=== PATIENT | male | born 1945 | race Caucasian/White ===

== ENCOUNTER → 2017-10-19 | Outpatient (CLI) | payer MEDICARE, OTHER ==
[~2017-10-19] MED LIST: ASCO-182 PO; ASCO-342 PO; ASPI-715 PO; ASPI-816 PO; ATOR10TA65 PO; ESOM40CA42 PO; ESOM40SU2 PO; FLU45SYR25 IM ONLY; HTN MED; IBUP-1687 PO; IBUP200C71 PO; KEPPRA; LEVE500T73 PO; LEVE500T88 PO; LISI-362 PO; MULT-56 PO; MULT1CAP59 PO; MULT1TAB64 PO; OMEG-96 PO; OMEG1CAP98 PO; OMEG500C5 PO; PANT40TA65 PO; PNEU0.5D3 IM; TAMS0.4C25 PO
== END ==
LOC: LAB 08:05
PROVIDERS: ATTEND Urology
DX: C61 Malignant neoplasm of prostate (principal)
CPT/HCPCS: 36415; 84153

== ENCOUNTER → 2017-10-21 | Outpatient (REF) | payer MEDICARE, OTHER | LOC: ZZSENDIN 18:42 | PROVIDERS: ATTEND Urology | DX: N39.0 Urinary tract infection, site not specified (principal); R33.8 Other retention of urine | CPT/HCPCS: 81001; 87088 ==

== ENCOUNTER → 2018-01-22 | Outpatient (CLI) | payer MEDICARE, OTHER ==
[~2018-01-22] MED LIST changes: -ASPI-816 PO; +ASPI-870 PO
== END ==
LOC: LAB 13:08
PROVIDERS: ATTEND Urology
DX: C61 Malignant neoplasm of prostate (principal)
CPT/HCPCS: 36415; 84153

== ENCOUNTER → 2018-04-05 | Outpatient (CLI) | payer MEDICARE, OTHER ==
[~2018-04-05] MED LIST changes: +IBUP-136 PO; -IBUP200C71 PO; +MIRT7.5T2 PO; +PANT20TA27 PO
== END ==
LOC: LAB 13:30
PROVIDERS: ATTEND Surgery
DX: Z02.9 Encounter for administrative examinations, unspecified (principal)
CPT/HCPCS: 88305

== ENCOUNTER → 2018-05-14 | Outpatient (CLI) | payer MEDICARE, OTHER | LOC: LAB 14:09 | PROVIDERS: ATTEND Urology | DX: C61 Malignant neoplasm of prostate (principal) | CPT/HCPCS: 36415; 84153 ==

== ENCOUNTER → 2018-07-12 | Outpatient (CLI) | payer MEDICARE, OTHER ==
[~2018-07-12] MED LIST changes: +LISI5TAB25 PO
[2018-07-12 17:39] LABS: PLATELET COUNT, AUTOMATED 336 K/uL (150-450)
== END ==
LOC: LAB 17:21
PROVIDERS: ATTEND Family Medicine
DX: R53.83 Other fatigue (principal); I10 Essential (primary) hypertension
CPT/HCPCS: 36415; 82040; 82247; 82310; 82374; 82435; 82565; 82947; 84075; 84132; 84155; 84295; 84443; 84450; 84460; 84520; 85025

== ENCOUNTER → 2018-07-26 | Outpatient (CLI) | payer MEDICARE, OTHER | LOC: LAB 12:04 | PROVIDERS: ATTEND Family Medicine | DX: I10 Essential (primary) hypertension (principal) | CPT/HCPCS: 36415; 82310; 82374; 82435; 82565; 82947; 84132; 84295; 84520 ==

== ENCOUNTER → 2018-09-17 | Outpatient (CLI) | payer MEDICARE, OTHER | LOC: LAB 11:59 | PROVIDERS: ATTEND Urology | DX: C61 Malignant neoplasm of prostate (principal) | CPT/HCPCS: 36415; 84153 ==

== ENCOUNTER 2018-11-22 13:00 | Outpatient (RCR) | payer MEDICARE, OTHER ==
--- NOTE | 2018-08-27 14:31 | PT INITIAL EVALUATION ---
MEDICAL DIAGNOSIS: R26.89 Imbalance, M79.605 L LE pain TREATMENT DIAGNOSIS: Same DATE OF ONSET: 02/13/10 SUBJECTIVE: Ean Galindo (Charley) presents to PT for recurrent falls since he had a parietal region meningioma excised 02/13/[address] Block, subsequent radiation after that. His , Sundeep, relates he's missing chairs and the edge of the bed and falling because he isn't turning fully before sitting. Kaleigh reports intermittent L LE electric shock at his toes, none today. REHAB PROBLEM LIST: Increased Pain Decreased ROM Decreased Strength Impaired Transfers Decreased Endurance Decreased Balance Decreased Function Decreased Mobility Decreased Gait PREVIOUS MEDICAL HISTORY: Meningioma excision 2009, HTN, hypercholesteremia, partial prostatectomy, smokes a cigar/day, TURP. 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 Kaleigh relates it's difficult to get around town due to his balance and weakness. OBJECTIVE: Posture: Long L LE, ~1", with subsequent L lumbar scoliosis, heels 6" apart. L foot appears to have PTTD. ROM: LE PROM WNL, knees with crepitus, tight lateral hips, calves.. Shoulders AROM WNL. Strength: Hip flexors R 3+/5, L 4-/5, quads, hamstrings 4-/5 B, Tib. ant. 4+/5 R, 4/5 L, calves 2/5. Special Tests: Negative SLR with ankle DF B for paresthesia, R 60 deg., L 70 degrees. Negative Tinel tap at the tarsal tunnel. Mobility: Sit/stand with UE use, 3 attempts. Transfers chair/chair with difficulty due to imbalance, lack of WS, unsteady trunk. Gait: 4WW with discordant cadance, feet don't clear the floor or pass each other, mild weaving. Tinetti Gait and Balance 8, a high fall risk. Kaleigh is unable to turn 180 deg. independently due to weakness and imbalance. Balance: Double limb support only. Kaleigh sits down with push to chest. Standing narrow CHRISTINA with eyes open is unsteady. Other Objective Findings: O2 91%, HR 102 with standing one minute. ASSESSMENT: Kaleigh Galindo presents with high fall risk, weakness, imbalance, possible L sciatic pain. We'll work imbalance first. He did well with strengthening today. Short Term Goals One month: Kaleigh ambulates 50 feet without stopping, steady with immediate standing balance. Two months: Kaleigh turns fully before sitting with balance control, transfers without UE use with quad control. Three months: Low fall risk (Tinetti), short distance community ambulator with 4WW. Patient's Goals Reduce the number of falls and walk better. PLAN: Patient to be seen for Therapeutic exercise, Balance and Gait Training, Neuro RE-education for 2x/week for 3 months. Thank you for this referral. If you have any questions, comments, or concerns about this report or plan, please contact me at . [facility]
--- NOTE | 2018-10-04 14:19 | PT PLAN OF CARE ---
Physician: Dr. Shannan Mccann Patient is being seen: 2x/week Therapist: Julieth Gregg, PT Medical Diagnosis: R26.89 Imbalance, M79.605 L LE pain Treatment Diagnosis: Same Date of Onset: 02/13/10 Date of Initial Evaluation: 08/27/18 Date patient was last seen: 09/30/18 Number of treatments: 10 Number of cancellations/No shows: 0 INTERVENTIONS: Therapeutic Exercise, Gait and Balance Training GOALS: One month: Kaleigh ambulates 50 feet without stopping, steady with immediate standing balance. (both progressing) Two months: Kaleigh turns fully before sitting with balance control (progressing), transfers without UE use with quad control (not met). Three months: Low fall risk (Tinetti), short distance community ambulator with 4WW. (both not met) PATIENT'S GOAL: Reduce the number of falls and walk better. (both progressing) Patient Compliance: Excellent Prognosis: Excellent Reasons for continuing therapy: S: Kaleigh relates he isn't falling as much but still does fall at home. O: Strength: Sit/stand with eccentric quad control, L foot drop still present. Gait: Kaleigh now ambulates with 4WW with 6 to 8 consecutive steps, then stops due to weak L hip flexor. Mobility: Sit/stand with UE use, 1-3 attempts. Transfers turning 90 to 180 degrees, still lunges at times for a chair. Balance: Double limb support still. Tinetti Gait and Balance improved from to 07/14, a 61% impairment. A/P: Kaleigh Galindo is improving gait quality, still a high fall risk. If you agree, we'll continue 2x/week, working more balance training another 2 months. Thank you. BULL
--- NOTE | 2018-11-08 18:17 | PT PLAN OF CARE ---
Physician: Dr. Shannan Mccann Patient is being seen: 2x/week Therapist: Julieth Gregg, PT Medical Diagnosis: R26.89 Imbalance, M79.605 L LE pain Treatment Diagnosis: Same Date of Onset: 02/13/10 Date of Initial Evaluation: 08/27/18 Date patient was last seen: 11/08/18 Number of treatments: 20 Number of cancellations/No shows: 0 INTERVENTIONS: Balance and Gait Training, Neuro Re-education, Therapeutic Exercise GOALS: One month: Kaleigh ambulates 50 feet without stopping, steady with immediate standing balance. (both met) Two months: Kaleigh turns fully before sitting with balance control (progressing), transfers without UE use with quad control (met). Three months: Low fall risk (Tinetti) (progressing), short distance community ambulator with 4WW. (met) PATIENT'S GOAL: Reduce the number of falls and walk better. (both progressing) Patient Compliance: Excellent Prognosis: Excellent Reasons for continuing therapy: S: Kaleigh relates he's walked all across the hospital with his 4WW to get from the cafeteria to PT. Gait and Balance: Gait with 4WW slowly for 50 feet, reduced L hip flexion and foot doesn't clear the floor, R foot passes L and clears the floor. Tinetti Gait and Balance test improved to 17, a high fall risk. Kaleigh still performs balance exercise with flexed and L side bent trunk, reduced R WS. Strength: Sit/stand from 21" height in one attempt, improved eccentric quad strength. A/P: Kaleigh Galindo is improving gait and balance, strength. he can benefit from continued PT to reduce fall risk and improve gait quality, posture. If you agree, we'll continue 2x/week 4 more weeks then assess if he needs further PT or DC. Thank you. BULL
== END 2018-11-25 ==
LOC: PT 13:00
PROVIDERS: ATTEND Family Medicine
DX: M79.604 Pain in right leg (principal); R26.89 Other abnormalities of gait and mobility
CPT/HCPCS: 97162

== ENCOUNTER 2019-01-11 13:52 | Emergency (ER) | payer MEDICARE, OTHER ==
--- NOTE | 2019-01-11 14:05 | ER Report ---
History and Physical Time Seen By MD: 14:05 Hx. of Stated Complaint: ELEVATED BP AT PHYSICAL THERAPY. ASYMPOTAMATIC - "I DIDN'T THINK I NEEDED TO COME BUT THEY TOLD ME TO". HPI/ROS CHIEF COMPLAINT: High blood pressure HISTORY OF PRESENT ILLNESS: This is a 73-year-old male who presents to the emergency department from physical therapy for hypertension. Patient has a long- standing history of hypertension. Was at the end of his physical therapy treatment today, which he has been in for about 5 years. Patient had no symptoms, no headaches, no chest pain or shortness breath, no visual changes, no fevers or chills. No nausea or vomiting. He states that they were concerned about the elevated blood pressure wanted him evaluated. REVIEW OF SYSTEMS: Respiratory: No cough, no dyspnea. Cardiovascular: As above. Gastrointestinal: No vomiting, no abdominal pain. Musculoskeletal: No back pain. Allergies: Coded Allergies: No Known Allergies (Verified Allergy, Mild, 01/11/19) Home Meds Active Scripts Lisinopril (LISINOPRIL) 10 Mg Tablet, 10 MG PO QDAY for 90 Days, #90 TAB 4 Refills Prov:BARRY MARSH MD 09/06/18 Pantoprazole Sodium (PANTOPRAZOLE SODIUM) 20 Mg Tablet.dr, 20 MG PO QDAY for 90 Days, #90 TAB.SR 4 Refills Prov:BARRY MARSH MD 08/23/18 Mirtazapine (MIRTAZAPINE) 7.5 Mg Tablet, 7.5 MG PO QHS for 90 Days, #90 TAB 4 Refills Prov:BARRY MARSH MD 07/12/18 Atorvastatin Calcium (ATORVASTATIN CALCIUM) 10 Mg Tablet, 1 TAB PO DAILY, #90 TAB 4 Refills TAKE ONE TABLET BY MOUTH ONCE A DAY AT BED TIME Prov:BARRY MARSH MD 07/17/17 Aspirin (Children's Aspirin) 81 Mg Tab.chew, 1 TAB PO QDAY, #100 TAB 4 Refills Prov:PREM ANDRADE MD 09/03/15 Reported Medications Ascorbic Acid (C-1000) 1,000 Mg Tablet, 1 TAB PO DAILY 07/08/17 [place]-3 Fatty Acids/Fish Oil (OMEGA 3 1,000 MG SOFTGEL) 1 Each Capsule, 1 CAP PO QDAY, CAPSULE 07/08/17 Multivit-Min/FA/Lycopen/Lutein (Men 50 Plus Multivitamin Tab) 300 Mcg-600 Mcg- 300 Mcg Tablet, 1 TAB PO DAILY 07/08/17 Past Medical/Surgical History Patient has a past medical and surgical history of brain tumor, removed in 2009, received radiation, 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 Reviewed Nurses Notes: Yes Hx Smoking: No (cigar every morning, smoked for "a long time") Smoking Status: Former Smoker Hx Substance Use Disorder: No Hx Alcohol Use: No Constitutional Vital Sign - Last 24 Hours 01/11/19 01/11/19 13:58 14:15 Temp 98.3 Pulse 68 71 Resp 20 20 B/P (MAP) 156/91 153/96 (115) Pulse Ox 94 95 O2 Delivery Room Air Room Air Physical Exam General Appearance: The patient is alert, has no immediate need for airway protection and no signs of toxicity. Eyes: Pupils equal and round no pallor or injection. ENT, Mouth: Mucous membranes are moist. Respiratory: There are no retractions, lungs are clear to auscultation. Cardiovascular: Regular rate and rhythm. No murmurs, clicks or rubs. Gastrointestinal: Abdomen is soft and non tender, no masses, bowel sounds normal. Neurological: Alert and oriented as 4. Moving all extremities, at baseline. Fol lowing all commands. No focal neuro deficits. Skin: Warm and dry, no rashes. Musculoskeletal: Neck is supple non tender. Extremities are nontender, nonswollen and have full range of motion. DIFFERENTIAL DIAGNOSIS: After history and physical exam differential diagnosis was considered for hypertension. Medical Decision Making ED Course/Re-evaluation ED Course The patient was admitted to room. A history and physical were obtained. Differential diagnoses were considered. After discussion with patient, and reviewing the patient's for cervical blood pressures, the blood pressure today i s within his normal range, as he is asymptomatic, we decided that there was no further evaluation needed at this time, the patient was agreeable with this would prefer to go home, I was agreeable, patient was encouraged to follow-up with his primary care provider for reevaluation or return to the ER for any other concerns. He is rest and understanding discharged home. Decision to Disposition Date: January 11, 2019 Decision to Disposition Time: 14:12 Depart Departure Latest Vital Signs Vital Signs Date Time Temp Pulse Resp B/P (MAP) Pulse Ox O2 Delivery O2 Flow Rate FiO2 01/11/19 14:15 71 20 153/96 (115) 95 Room Air 01/11/19 13:58 98.3 Impression: Primary Impression: Hypertension Condition: Improved Disposition: HOME OR SELF-CARE Referrals: BARRY MARSH MD (PCP) 2 Weeks Patient Instructions: Hypertension (ED) Additional Instructions: When compared to your previous blood pressures, the one today is very similar. You have no complaints, no headaches, changes in vision, chest pain, shortness of breath or any other concerns today, therefore we can send you home and follow up with Dr. Marsh as scheduled. Continue with therapy as scheduled. Continue taking your regular medications. If you have any concerns, please return to the ED immediately for reevaluation. Drink plenty of water. Get plenty of rest. 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
[2019-01-11 14:15] VITALS: BP 153/96
== END 2019-01-11 14:19 | disposition home or self-care (01) ==
LOC: ER 14:19
DX: I10 Essential (primary) hypertension (principal)
CPT/HCPCS: 99281

== ENCOUNTER 2019-02-10 12:54 | Outpatient (RCR) | payer MEDICARE, OTHER ==
--- NOTE | 2018-11-29 18:00 | PT PLAN OF CARE ---
Physician: Dr. Shannan Mccann Patient is being seen: 2x/week Therapist: Julieth Gregg, PT Medical Diagnosis: R26.89 Imbalance, M79.605 L LE pain Treatment Diagnosis: Same Date of Onset: 02/13/10 Date of Initial Evaluation: 08/27/18 Date patient was last seen: 11/29/18 Number of treatments: 25 Number of cancellations/No shows: 0 INTERVENTIONS: Therapeutic Exercise, Gait/Balance Training, Neuro Re-education GOALS: One month: Kaleigh ambulates 50 feet without stopping, steady with immediate standing balance. (both met) Two months: Kaleigh turns fully before sitting with balance control (progressing), transfers without UE use with quad control (met). Three months: Low fall risk (Tinetti) (progressing), short distance community ambulator with 4WW. (met) PATIENT'S GOAL: Reduce the number of falls and walk better. 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 He reports his L LE stiffens wtih cold weather, making gait difficult. O: Strength: Hip flexors R 4/5, L 4-/5, quads, hamstrings 4/5 B, Tib. ant. 4+/5 R, 4/5 L, calves 2/5. Gait/Balance: 4WW with forearm supports with feet almost passing each other, sometimes the L foot clears the floor, few stops. Tinetti Gait and Balance improved one point to 18, a high fall risk still. Kaleigh can now turn independently, slowly, discordant steps and slight LOB with self-recovery Special Tests: Tight L ITB, psoas, quads, hamstrings, adductors. Mobility: Sit/stand without UE use, 1 attempt. Turns and stops for balance in 180 deg. turns to chair. A/P: Johan Galindo is improving gait, balance, strength but is still a high fall risk. If you agree, I'd like Johan to continue 2x/week through December, adding manual L LE stretching and higher level balance training in treatment. Thank you. BULL
--- NOTE | 2019-01-11 17:45 | PT PLAN OF CARE ---
Physician: Dr. Shannan Mccann Patient is being seen: 2x/week Therapist: Julieth Gregg, PT Medical Diagnosis: R26.89 Imbalance, M79.605 L LE pain Treatment Diagnosis: Same Date of Onset: 02/13/10 Date of Initial Evaluation: 08/27/18 Date patient was last seen: 01/11/19 Number of treatments: 35 Number of cancellations/No shows: [*] INTERVENTIONS: Balance, Gait training, Therapeutic exercise GOALS: One month: Kaleigh ambulates 50 feet without stopping, steady with immediate standing balance. (both met) Two months: Kaleigh turns fully before sitting with balance control (met), transfers without UE use with quad control (met). Three months: Low fall risk (Tinetti) (progressing), short distance community ambulator with 4WW. (met) PATIENT'S GOAL: Reduce the number of falls and walk better. (both progressing) Patient Compliance: Excellent Prognosis: Excellent Reasons for continuing therapy: S: Johan reports he's stronger with ambulation. He didn't take his BP today and denies symptoms of HTN. His L LE pain is intermittent, gone today. O: Strength: Hip flexors R 4/5, L 4+/5, quads, hamstrings 4+/5 B, Tib. ant. 4+/5 B, calves remain 2/5. Gait/Balance: Kaleigh now ambulates 50-70 feet without stopping, R foot clears the floor, L foot intermittently clears the floor. Tinetti Gait and Balance remains 18, a high fall risk. Kaleigh now turns fully before sitting. Steady stand eyes shut now, holds standing with perturbation with sway. Kaleigh is unable to turn independently. BP: BP seated at rest (L UE) fluctuated between 162.121, 234/121, 161/101, 157/97 and 161/100 today. A/P: Kaleigh's BP was erratic today. I asked him to go to the ED where they checked him out and sent him home, BP 157/91 (all your phone lines were busy). He is strengthening well and could benefit from continued PT to improve balance, reduce fall risk. If you agree, we'll continue through January at 2x/week to goals set. Thank you. BULL
--- NOTE | 2019-02-14 14:54 | PT PLAN OF CARE ---
Physician: Dr. Shannan Mccann Patient is being seen: 2x/week Therapist: Julieth Gregg, PT Medical Diagnosis: R26.89 Imbalance, M79.605 L LE pain Treatment Diagnosis: Same Date of Onset: 02/13/10 Date of Initial Evaluation: 08/27/18 Date patient was last seen: 02/10/19 Number of treatments: 41 Number of cancellations/No shows: 0 INTERVENTIONS: Therapeutic Exercise, Gait and Balance Training, Gym exercise program GOALS: One month: Kaleigh ambulates 50 feet without stopping, steady with immediate standing balance. (both met) Two months: Kaleigh turns fully before sitting with balance control (met), transfers without UE use with quad control (met). Three months: Low fall risk (Tinetti) (not met), short distance community ambulator with 4WW. (met) PATIENT'S GOAL: Reduce the number of falls and walk better. (both met) Patient Compliance: Excellent Prognosis: Excellent Reasons for discontinuing therapy: S: Kaleigh denies falls in this last month. O: Gait: With cues, Kaleigh is able to ambulate with 4WW upright, lifting L foot 3" to clear the floor. 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 Mobility: Sit/stand without UE use, 1 attempts. Turns fully to sit most of the time. A/P: Kaleigh Galindo has improved gait and balance. He has chosen to do our self- pay gym program and has already started attending it. I'll DC PT to gym program. Thank you. BULL
== END 2019-02-10 18:00 | disposition home or self-care (01) ==
LOC: PT 12:54
PROVIDERS: ATTEND Family Medicine
DX: M79.604 Pain in right leg (principal); R26.89 Other abnormalities of gait and mobility

== ENCOUNTER → 2019-03-14 | Outpatient (CLI) | payer MEDICARE, OTHER ==
[2019-03-14 14:37] LABS: PLATELET COUNT, AUTOMATED 358 K/uL (150-450)
== END ==
LOC: LAB 14:21
PROVIDERS: ATTEND Family Medicine
DX: I10 Essential (primary) hypertension (principal)
CPT/HCPCS: 36415; 82040; 82247; 82310; 82374; 82435; 82565; 82947; 84075; 84132; 84155; 84295; 84450; 84460; 84520; 85025